=== PATIENT | female | born 1960 | race Caucasian/White ===

== ENCOUNTER → 2016-09-15 | Outpatient (CLI) | payer BC, OTHER ==
[~2016-09-15] VITALS: Ht 165.1 cm; Wt 77.8 kg
[~2016-09-15] MED LIST: LIAL1.2T PO; NS 1,000 ML IV SCH; OMEP20CA3 PO
--- NOTE | 2016-09-15 10:11 | ROOR ---
Patient Name: Radha Cameron Procedure Date: 09/15/2016 9:43 AM Date of : 1960 Age: 56 Room: [facility] Gender: Female Note Status: Finalized Procedure: Colonoscopy to Cecum + ileoscopy + Biopsies Indications: High risk colon cancer surveillance: Ulcerative colitis Providers: Mckinley Cox MD Referring MD: Janneth Begum MD Requesting Provider: Medicines: Monitored Anesthesia Care Complications: No immediate complications. Procedure: Pre-Anesthesia Assessment: - The heart rate, respiratory rate, oxygen saturations, blood pressure, adequacy of pulmonary ventilation, and response to care were monitored throughout the procedure. The Colonoscope was introduced through the anus and advanced to the ileocecal valve. The colonoscopy was performed without difficulty. The patient tolerated the procedure well. The quality of the bowel preparation was excellent. Findings: The perianal and digital rectal examinations were normal. Non-bleeding internal hemorrhoids were found during retroflexion. The hemorrhoids were small and Grade I (internal hemorrhoids that do not prolapse). Localized mild inflammation characterized by congestion (edema), erosions, erythema and granularity was found in the mid ascending colon. Biopsies were taken with a cold forceps for histology. No other significant abnormalities were identified in a careful examination of the remainder of the colon. The terminal ileum appeared normal. Background biopsies were taken for histology with a cold forceps from the ascending colon, transverse colon, descending colon and rectosigmoid colon. These biopsy specimens were sent to Pathology. The exam was otherwise without abnormality on direct and retroflexion views. Impression: - Non-bleeding internal hemorrhoids. - Localized mild inflammation was found in the mid ascending colon secondary to ulcerative colitis. Biopsied. - The examined portion of the ileum was normal. - The examination was otherwise normal on direct and retroflexion views. - Background biopsies were taken from the ascending colon, transverse colon, descending colon and rectosigmoid colon. - The exam was otherwise normal to the cecum. - The examined portion of the ileum was normal. Recommendation: - Patient has a contact number available for emergencies. The signs and symptoms of potential delayed complications were discussed with the patient. Return to normal activities tomorrow. Written discharge instructions were provided to the patient. - High fiber diet. - Discharge patient to home. - Await pathology results. - Telephone GI clinic for pathology results in 1 week. - Continue present medications. - Repeat colonoscopy in 3 - 5 years for surveillance based on pathology results. - Return to referring physician. - The findings and recommendations were discussed with the patient's family. Mckinley Cox MD Mckinley Cox MD 09/15/2016 10:11:21 AM This report has been signed electronically. Number of Addenda: 0 Note Initiated On: 09/15/2016 9:43 AM Estimated Blood Loss: Estimated blood loss: none.
== END ==
LOC: M OPP 09:00
PROVIDERS: ATTEND Internal Medicine Gastroenterology
DX: Z12.11 Encounter for screening for malignant neoplasm of colon (principal); K64.0 First degree hemorrhoids; K51.50 Left sided colitis without complications; Z80.0 Family history of malignant neoplasm of digestive organs; Z79.899 Other long term (current) drug therapy; Z88.0 Allergy status to penicillin

== ENCOUNTER → 2017-04-11 | Outpatient (CLI) | payer BC ==
[~2017-04-11] MED LIST changes: -NS 1,000 ML IV SCH
--- NOTE | 2017-04-11 10:06 | REP ---
Cervical spine seven views: There are no comparisons. Vertebral body heights and alignment are normal. There is no listhesis on flexion or extension. The facets are normally aligned. There is disc space narrowing and degenerative disc disease at C for five and C5-6. The remainder of the disc spaces are unremarkable. The prevertebral soft tissues are normal. There is foraminal encroachment from uncinate spurring on the left at C 05/06. The odontoid view is unremarkable. Impression: Degenerative disc disease and foraminal encroachment as described. Otherwise, negative cervical spine. Signed by Kin Simpson MD 04/11/2017 09:58 A
== END ==
LOC: M WUC 09:36
PROVIDERS: ATTEND Physician Assistant
DX: M50.322 Other cervical disc degeneration at C5-C6 level (principal)

== ENCOUNTER → 2022-10-15 | Outpatient (CLI) | payer BC, OTHER ==
[~2022-10-15] MED LIST changes: +ALBU6.7H6 INH; +OMEP1CAP73 PO; -OMEP20CA3 PO; +ZYRTTAB8 PO
== END ==
LOC: M LABSMTC 09:30
PROVIDERS: ATTEND Anesthesiology
DX: Z01.818 Encounter for other preprocedural examination (principal); Z11.52 Encounter for screening for COVID-19

== ENCOUNTER 2022-10-20 12:13 | Day surgery (SDC) | payer OTHER ==
[~2022-10-20] VITALS: Ht 167.6 cm; Wt 77.1 kg
[~2022-10-20 12:13] MED LIST changes: +LIDOCAINE 2% 100MG/5ML SDV (FOR ANES.) As Ordered ONE; +NS 1,000 ML IV ONE; +propofoL 200 MG/20 ML VIAL As Ordered ONE
[2022-10-20 13:52] VITALS: BP 117/66
== END 2022-10-20 14:07 | disposition home or self-care (01) ==
LOC: M OPP 12:13
PROVIDERS: ATTEND Internal Medicine Gastroenterology
DX: K63.89 Other specified diseases of intestine (principal); J45.909 Unspecified asthma, uncomplicated; Z79.51 Long term (current) use of inhaled steroids; Z79.899 Other long term (current) drug therapy; Z88.0 Allergy status to penicillin